=== PATIENT | female | born 1955 | race American Indian/Alaskan Native ===

== ENCOUNTER 2017-11-10 08:50 | Outpatient (CLI) | payer BC ==
--- NOTE | 2017-11-10 10:33 | Mammography Report ---
BILATERAL MAMMOGRAM: FINDINGS: The breast tissue is heterogeneously dense, which could obscure detection of small masses (approximately 50%-75% glandular). No mass, distortion, suspicious calcification, or skin change is seen. No significant changes are identified when compared to exams dating back to July 2015. CAD was utilized. IMPRESSION: Negative mammogram. There is no mammographic evidence of malignancy. RECOMMENDATION: Follow-up per ACS guidelines. BI-RADS CATEGORY: 1 = Negative ACR BI-RADS MAMMOGRAPHIC CODES: 0 = Needs additional imaging evaluation; 1 = Negative; 2 = Benign; 3 = Probably benign; 4 = Suspicious; 5 = Malignant; 6 = Known biopsy-proven malignancy COMMENT: 1. Dense breast tissue, i.e., adenosis, fibrocystic changes, etc., may obscure an underlying neoplasm. 2. Approximately 10% of cancers are not detected with mammography. 3. A negative mammography report should not delay biopsy if a clinically suspicious mass is present. COMMENT: Patient follow-up letters are generated in [employer].
== END 2017-11-10 08:51 | disposition home or self-care (01) ==
LOC: SPVWC 08:50
PROVIDERS: ATTEND Obstetrics & Gynecology
DX: Z12.31 Encounter for screening mammogram for malignant neoplasm of breast (principal)
CPT/HCPCS: 77067

== ENCOUNTER 2018-11-22 15:16 | Outpatient (CLI) | payer BC ==
--- NOTE | 2018-11-23 14:39 | Mammography Report ---
BILATERAL DIGITAL SCREENING MAMMOGRAM with CAD : 11/22/18 15:16:00 CLINICAL: Routine screening.History of cysts. COMPARISON:11/10/17 and 08/08/15 FINDINGS: The breasts are heterogeneously dense, which may obscure small masses.Scattered bilateral benign calcifications. No mass, architectural distortion or suspicious calcifications. IMPRESSION: No mammographic evidence of malignancy. BI-RADS CATEGORY: 2 -- Benign RECOMMENDATION: Routine mammographic screening in one year. COMMENT: Patient follow-up letters are generated by our [employer] application.
== END 2018-11-22 15:17 | disposition home or self-care (01) ==
LOC: SPVWC 15:16
PROVIDERS: ATTEND Obstetrics & Gynecology
DX: Z12.31 Encounter for screening mammogram for malignant neoplasm of breast (principal)
CPT/HCPCS: 77067

== ENCOUNTER 2019-12-26 11:38 | Outpatient (CLI) | payer BC ==
--- NOTE | 2019-12-26 15:24 | Mammography Report ---
DIGITAL SCREENING MAMMOGRAM WITH CAD, 12/26/2019 INDICATION: Routine screening mammography. TECHNIQUE: Digital bilateral 2D mammography was obtained in the craniocaudal and mediolateral obliq ue projections. This examination was interpreted with the benefit of Computer-Aided Detection analysi s. COMPARISON: 11/22/2018 FINDINGS: Breast Density: The breasts are heterogeneously dense, which may obscure small masses. There is no evidence of dominant mass, suspicious calcifications or architectural distortion in eithe r breast. IMPRESSION: No mammographic evidence of malignancy. Follow up recommendation: Routine yearly BI-RADS Category 2: Benign. A "normal" or negative report should not discourage follow up or biopsy of a clinically significant f inding. A written summary of these findings will be mailed to the patient. The patient will be entered into a mammography reporting system which will generate a reminder letter for the patient's next appointmen t at the appropriate interval. The [employer] recommends yearly mammograms starting at age 40 and continuing as l cooper as a woman is in good health. Breast MRI is recommended for women with an approximate 20-25% or greater lifetime risk of breast cancer, including women with a strong family history of breast or ova idalmis cancer or who have been treated for Hodgkin's disease. Signer Name: Rich Celeste MD Signed: 12/26/2019 3:19 PM Workstation Name: [id number]
== END 2019-12-26 11:39 | disposition home or self-care (01) ==
LOC: SPVWC 11:38
PROVIDERS: ATTEND Family Medicine
DX: Z12.31 Encounter for screening mammogram for malignant neoplasm of breast (principal)
CPT/HCPCS: 77067

== ENCOUNTER 2021-01-08 08:51 | Outpatient (CLI) | payer BC ==
--- NOTE | 2021-01-08 09:47 | Mammography Report ---
DIGITAL SCREENING MAMMOGRAM WITH CAD, 01/08/2021 CLINICAL INFORMATION / INDICATION: Routine screening mammography. TECHNIQUE: Digital bilateral 2D mammography was obtained in the craniocaudal and mediolateral obliqu e projections. This examination was interpreted with the benefit of Computer-Aided Detection analysis . COMPARISON: 12/26/2019, 11/22/2018 FINDINGS: Breast Density: The breasts are heterogeneously dense, which may obscure small masses. No dominant mass, suspicious calcifications, or architectural distortion in the left breast. There is a new oval mass in the right subareolar breast measuring 13 mm. The mass is mostly well-circ umscribed. This will need further evaluation with right breast ultrasound. I see no other significant interval change. IMPRESSION: New right breast subareolar 13 mm mass. Recommend further evaluation with right breast ul trasound. Follow up recommendation: Ultrasound BI-RADS Category 0: Incomplete. Needs additional imaging evaluation and/or prior mammograms for adriana álvarez. A "normal" or negative report should not discourage follow up or biopsy of a clinically significant f inding. A written summary of these findings will be mailed to the patient. The patient will be entered into a mammography reporting system which will generate a reminder letter for the patient's next appointmen t at the appropriate interval. The [employer] recommends yearly mammograms starting at age 40 and continuing as l cooper as a woman is in good health. Breast MRI is recommended for women with an approximate 20-25% or greater lifetime risk of breast cancer, including women with a strong family history of breast or ova idalmis cancer or who have been treated for Hodgkin's disease. Signer Name: Quynh Simpson MD Signed: 01/08/2021 9:42 AM Workstation Name: [email or web address]
== END 2021-01-08 08:52 | disposition home or self-care (01) ==
LOC: SPVWC 08:51
PROVIDERS: ATTEND Family Medicine
DX: Z12.31 Encounter for screening mammogram for malignant neoplasm of breast (principal); N63.10 Unspecified lump in the right breast, unspecified quadrant
CPT/HCPCS: 77067

== ENCOUNTER 2021-02-05 10:00 | Outpatient (CLI) | payer BC, OTHER ==
--- NOTE | 2021-02-05 14:12 | Ultrasound Report ---
RIGHT DIGITAL DIAGNOSTIC MAMMOGRAM WITH CAD CONVENTIONAL, 02/05/2021 RIGHT LIMITED BREAST ULTRASOUND CLINICAL INFORMATION / INDICATION: Patient presents as a callback from screening mammogram for furthe r evaluation of a nodular density in the right breast. INCONCLUSIVE MAMMOGRAM/ RIGHT BREAST MASS TECHNIQUE: Digital right mammographic imaging was performed. Spot compression views were obtained. Li mited ultrasound was performed. This examination was interpreted with the benefit of Computer-Aided D etection (CAD) analysis. COMPARISON: Prior mammogram 01/08/2021 FINDINGS: Breast Density: The breasts are heterogeneously dense, which may obscure small masses. MAMMOGRAPHIC FINDINGS: Spot compression views reveal a persistent 1.3 cm oval circumscribed mass in t he anterior subareolar right breast. Targeted ultrasound performed for further evaluation. ULTRASOUND FINDINGS: Targeted ultrasound evaluation was performed of the area of interest. Targeted ultrasound of the subareolar right breast reveals benign duct ectasia. No discrete cyst or mass is i dentified. IMPRESSION: 1. Persistent oval circumscribed mass in the subareolar right breast. Benign duct ectasia is seen in this region sonographically, but no definite cyst or mass is seen sonographically to correspond with the mammographic finding. This is considered probably benign, recommend right diagnostic mammogram in 6 months to ensure stability. Follow up recommendation: Short term follow up in 6 months. BI-RADS Category 3: Probably Benign. Followup in 6 months. A "normal" or negative report should not discourage follow up or biopsy of a clinically significant f inding. A written summary of these findings will be mailed to the patient. The patient will be entered into a mammography reporting system which will generate a reminder letter for the patient's next appointmen t at the appropriate interval. According to the [employer], yearly mammograms are recommended starting at age 40 and continuing as long as a woman is in good health. Breast MRI is recommended for women with an varsha roximately 20-25% or greater lifetime risk of breast cancer, including women with a strong family his tory of breast or ovarian cancer and women who have been treated for Hodgkin's disease. Signer Name: Lakisha Lora MD Signed: 02/05/2021 12:22 PM Workstation Name: [id number]
== END 2021-02-05 10:01 | disposition home or self-care (01) ==
LOC: SPVWC 10:00
PROVIDERS: ATTEND Family Medicine
DX: N60.41 Mammary duct ectasia of right breast (principal); N63.41 Unspecified lump in right breast, subareolar

== ENCOUNTER 2021-07-16 11:06 | Outpatient (CLI) | payer BC, OTHER ==
--- NOTE | 2021-07-16 11:51 | Mammography Report ---
DIGITAL DIAGNOSTIC MAMMOGRAM WITH CAD, 07/16/2021 INDICATION: This is a 6 month follow-up evaluation of right breast density. The patient reports no ne w breast symptoms. TECHNIQUE: Digital right mammographic imaging was performed. This examination was interpreted with the benefit of Computer-aided Detection analysis. COMPARISON: Right diagnostic mammogram and ultrasound, 02/05/2021. Screening mammogram, 01/08/2021 and 12/26/2019 FINDINGS: Breast Density: The breasts are heterogeneously dense, which may obscure small masses. The circumscribed oval 1.2 cm nodular density in the right retroareolar region is unchanged and sully nues to have a benign mammographic appearance. No new or suspicious finding is seen in the right arpita [address]. IMPRESSION: Follow up recommendation: Back to schedule. The circumscribed density in the right retroareolar breas t is unchanged and continues to have a benign mammographic appearance. Previous ultrasound demonstrat ed scattered fibrocystic changes and ductal ectasia in this region. Due to its benign mammographic ap pearance and ongoing stability, this is considered benign. BI-RADS Category 2: Benign. A "normal" or negative report should not discourage follow up or biopsy of a clinically significant f inding. A written summary of these findings will be mailed to the patient. The patient will be entered into a mammography reporting system which will generate a reminder letter for the patient's next appointmen t at the appropriate interval. According to the [employer], yearly mammograms are recommended starting at age 40 and continuing as long as a woman is in good health. Breast MRI is recommended for women with an varsha roximately 20-25% or greater lifetime risk of breast cancer, including women with a strong family his tory of breast or ovarian cancer and women who have been treated for Hodgkin's disease. Signer Name: Magda Bennett MD Signed: 07/16/2021 11:47 AM Workstation Name: [id number]
== END 2021-07-16 11:07 | disposition home or self-care (01) ==
LOC: SPVWC 11:06
PROVIDERS: ATTEND Family Medicine
DX: R92.2 Inconclusive mammogram (principal); N64.89 Other specified disorders of breast

== ENCOUNTER 2022-02-03 10:03 | Outpatient (CLI) | payer OTHER ==
--- NOTE | 2022-02-03 16:41 | Mammography Report ---
DIGITAL SCREENING MAMMOGRAM WITH CAD, 02/03/2022 CLINICAL INFORMATION / INDICATION: Routine screening TECHNIQUE: Digital bilateral 2D mammography was obtained in the craniocaudal and mediolateral obliqu e projections. This examination was interpreted with the benefit of Computer-Aided Detection analysis . COMPARISON: 01/08/2021 FINDINGS: Breast Density: There are scattered areas of fibroglandular density. No dominant mass, suspicious calcifications, or architectural distortion in either breast. Benign-appearing calcifications and nodularity are again seen. Previous right density is no longer ob vious. IMPRESSION: No mammographic evidence of malignancy. Follow up recommendation: Routine yearly BI-RADS Category 2: BENIGN. A "normal" or negative report should not discourage follow up or biopsy of a clinically significant f inding. A written summary of these findings will be mailed to the patient. The patient will be entered into a mammography reporting system which will generate a reminder letter for the patient's next appointmen t at the appropriate interval. The [employer] recommends yearly mammograms starting at age 40 and continuing as l cooper as a woman is in good health. Breast MRI is recommended for women with an approximate 20-25% or greater lifetime risk of breast cancer, including women with a strong family history of breast or ova idalmis cancer or who have been treated for Hodgkin's disease. Signer Name: Stephan Caballero MD Signed: 02/03/2022 4:37 PM Workstation Name: [id number]
== END 2022-02-03 10:04 | disposition home or self-care (01) ==
LOC: SPVWC 10:03
PROVIDERS: ATTEND Family Medicine
DX: Z12.31 Encounter for screening mammogram for malignant neoplasm of breast (principal)
CPT/HCPCS: 77067